=== PATIENT | female | born 1970 | race Caucasian/White ===

== ENCOUNTER 2025-05-09 17:11 | Emergency (ER) | payer SELFPAY ==
--- NOTE | 2025-05-27 18:45 | NUR.NOTE ---
Chart entered in error for the date 05/08/2025. Nursing Note:
== END 2025-05-09 17:30 | disposition left against medical advice (07) ==
LOC: ER 05-27 18:45
DX: Z53.29 Procedure and treatment not carried out because of patient's decision for other reasons (principal)